=== PATIENT | female | born 1995 | race Asian ===

== ENCOUNTER 2022-03-07 01:28 | Inpatient (IN) ==
[2022-03-07] MEDS ORDERED: OXYTOCIN 30 UNITS/500 ML BAG IV PRN ×2 (01:42→01:44)
[2022-03-07 02:26] LABS: Hematocrit (blood only) 33.1 % (37-47); Hemoglobin 11.3 g/dL (12.0-16.0); Mean Corpuscular Hgb Conc 34.1 g/dL (32-36); Mean Corpuscular Volume 93.8 fL (80-100); Mean Platelet Volume 10.7 fL (7.4-10.4); Platelet Count 183 K/uL (130-400); Red Blood Count 3.53 M/uL (4.2-5.4); White Blood Count 7.79 K/uL (4.8-10.8)
--- NOTE | 2022-03-07 03:02 | History & Physical Report ---
Date of Service March 07, 2022 Assessment & Plan (1) Encounter for supervision of normal intrauterine in primigravida, antepartum: Plan: IUP at 40 4/7 weeks with SPROM and spontaneous onset of contractions GBS - negative patient will ambulate for now- pitocin if needed for augmentation of labor epidural when requested anticipate vaginal Admission and Anticipated Discharge Date Admission Date: March 07, 2022 History of Present Illness Chief Complaint: SPROM Primary Care Provider: NO PCP Patient is a 26 yo female, EDC 03/02/22 who presents at 40 3/7 weeks with SPROM of clear fluid at 0100 tonight. contractions started shortly afterward. is uncomplicated. GBS - negative Allergies Allergy/AdvReac Type Severity Reaction Status Date / Time No Known Allergies Allergy Verified 03/06/22 11:43 Home Medications Medication Instructions Recorded Confirmed Type prenat.vits,dori,[id number] PO 07/17/21 03/06/22 History ferrous sulfate PO 12/25/21 03/06/22 History Patient History Medical History (Updated 07/17/21 @ 13:47 by Chelly Soliz RN) No significant past medical history Varicella vaccination Surgical History (Updated 07/17/21 @ 13:47 by Chelly Soliz RN) No significant past surgical history Family History (Updated 07/17/21 @ 13:39 by Chelly Soliz RN) Denies family history of Prostate cancer Breast cancer Colorectal cancer Pulmonary embolism Social History (Updated 07/17/21 @ 13:41 by Chelly Soliz RN) Smoking Status: Never smoker Second Hand Exposure: No; Do You Dip or Chew Tobacco: No; Tobacco Cessation Education Requested by Patient: No Hx Alcohol Use: No Hx Substance Use: No Preferred Language: Wolof Communication Ability: Effective Visual Impairment: No Limitations Hearing Ability: Normal Detention Deputy Required: No Beliefs That Will Affect Care: None marital status: marital status details: Stewart Blackwell (29) [phone] Current Living Situation: Spouse Current Living Situation Comment: lives with . No pets current occupational status: employed current occupation: Grad student/research operator assistant [employer] Other Information That Helps Us Care for You: No Feels Safe at Home: No Is there a partner from a previous relationship who is making you feel unsafe now?: No Any Concerns about Your Family Situation: No Would You Like to Speak to Someone About Your Situation: No Safety Concerns: Feels Safe At This Time Assistive Devices: Glasses Review of Systems All systems reviewed & are unremarkable except as noted in HPI & below Physical Exam Constitutional: WD/WN, vitals as above Psychiatric: A+Ox3, euthymic affect Genitourinary: OB Exam Abdomen: + vertex, + estimated weight (7-8 pounds) and + regular contractions (mild to moderate) Manual OB Exam: + cervical dilation 1 cm, + cervical effacement 50% and + station -2 OB Exam Monitor Tracing: + external FHT monitor used, + external uterine monitor used, + category I and + normal FHT variability Results & Data ([facility]) Vital Signs (Past 12 Hours) Vital Signs Temp Pulse Resp BP 03/07/22 02:10 97.7 F 18 03/07/22 01:47 63 118/76 Coding Level of Care Code None Diagnoses Encounter for supervision of normal intrauterine in primigravida, antepartum Z34.00
[2022-03-07] MEDS: LACTATED RINGER'S 1,000 ML IV PRN ×3 (05:19→16:11)
[2022-03-07] MEDS ORDERED: ePHEDrine sulfate 50 MG/ML AMP ONE (07:18)
[2022-03-07] MEDS ORDERED: fentaNYL 2MCG/ML ROPIVACAINE 1.25MG/ML 100 ML BAG EPI ONE (07:19)
[2022-03-07] MEDS ORDERED: BUPIVACAINE 0.25% 30 ML VIAL ONE (07:19)
[2022-03-07] MEDS ORDERED: fentaNYL citrate 100 MCG/2 ML VIAL ONE (07:19)
[2022-03-07] MEDS ORDERED: SODIUM CHLORIDE 0.9% INJ 10 ML VIAL ONE (07:19)
--- NOTE | 2022-03-07 08:03 | Anesthesiology Consultation ---
Date of Service March 07, 2022 Assessment & Plan (1) Encounter for pre-operative examination: Chart Review Chart Review: Acceptable Risk for Labor Epidural Consults Requested none ASA ASA2 Proposed Anesthesia Anesthesia Type: Labor Epidural Risk / Benefits Reviewed With: PT / POA / Parent / Guardian, Accepts Plan and Informed Consent Obtained History Height/Weight Height: 5 ft 5 in Weight: 65.317 kg Allergies Allergy/AdvReac Type Severity Reaction Status Date / Time No Known Allergies Allergy Verified 03/06/22 11:43 Medications Home Medications Medication Instructions Recorded Confirmed Last Taken prenat.vits,dori,[id number] 1 tab PO DAILY 07/17/21 03/07/22 03/06/22 08:00 ferrous sulfate 1 tab PO DAILY 12/25/21 03/07/22 03/06/22 08:00 Active Medications Generic Name Dose Route Start Last Admin Trade Name Freq PRN Reason Stop Dose Admin Lactated Ringer's 1,000 mls @ 125 mls/hr 03/07/22 01:42 03/07/22 08:00 Lr IV 03/09/22 01:41 125 mls/hr .Q8H PRN Administration L&D Protocol Protocol Oxytocin 30 units in 500 mls @ 5 mls/hr 03/07/22 01:44 03/07/22 07:00 Pitocin IV 03/09/22 01:43 0.3 units/hr .Q24H PRN 5 mls/hr Labor Induction/Augmentation Titration Protocol 0.3 UNITS/HR Past Medical History Medical History No significant past medical history Varicella vaccination Exercise / Class Metabolic Activity II 4-5 Yardwork/Stairs/Walk up hill Past Family History Family History Denies family history of Prostate cancer Breast cancer Colorectal cancer Pulmonary embolism Past Surgical History Surgical History H/O wisdom tooth extraction No significant past surgical history Past Anesthesia History No Hx of Anesthesia Complications and No Family Hx of Anesthesia Complications History of PONV No Hx of PONV and No Hx of Motion Sickness Social History Smoking Status: Never smoker Do You Dip or Chew Tobacco: No Hx Alcohol Use: No Hx Substance Use: No substance use type: does not use Physical Exam Vital Signs Last Vital Signs Temp 98.8 F 03/07/22 07:00 Pulse 73 03/07/22 07:59 Resp 18 03/07/22 07:00 BP 107/63 03/07/22 07:57 Pulse Ox 97 03/07/22 07:59 ENMT Mouth: no dentition abnormality Thyromental Distance: > or= 3.5 Finger Breadths Mallampati Class: II Neck normal visual inspection Respiratory normal respiratory effort Auscultation: lungs clear to auscultation bilaterally Cardiovascular Rate/Rhythm: regular rate and regular rhythm Testing Laboratory Results 03/07/22 01:59
[2022-03-07] MEDS ORDERED: NALOXONE HCL 0.4 MG/1 ML VIAL/CARP IV PRN (08:24)
[2022-03-07] MEDS ORDERED: ePHEDrine sulfate 50 MG/ML AMP IV PRN (08:24)
[2022-03-07] MEDS ORDERED: diphenhydrAMINE 50 MG/ML VIAL IV PRN (08:24)
[2022-03-07] MEDS ORDERED: NALOXONE HCL 1 MG in SODIUM CHLORIDE 0.9% 1000ML 1,000 ML IV PRN (08:24)
[2022-03-07] MEDS ORDERED: NALBUPHINE HCL INJ 10 MG/ML AMP IV PRN (08:24)
[2022-03-07] MEDS ORDERED: ONDANSETRON INJ 2 MG/ML 2 ML VIAL IV PRN (08:49)
--- NOTE | 2022-03-07 11:57 | Labor Progress Brief Note ---
Date of Service March 07, 2022 Subjective comfortable with epidural Assessment & Plan (1) PROM (premature rupture of membranes): Plan: making progress, fetus category one, continue current management. Admission and Anticipated Discharge Date Admission Date: March 07, 2022 Physical Exam Physical Exam: cx--/-2 toco--q2-4min, pit at 13 efm--130s with mod variability, accels to 160s, no decels Results & Data ([facility]) Vital Signs (Past 12 Hours) Vital Signs Temp Pulse Resp BP Pulse Ox 03/07/22 11:49 68 96 03/07/22 11:48 67 103/63 03/07/22 11:44 68 97 03/07/22 11:39 64 97 03/07/22 11:34 73 16 97 03/07/22 11:32 64 110/61 94 03/07/22 11:29 68 95 03/07/22 11:26 68 94 03/07/22 11:24 66 95 03/07/22 11:19 67 95 03/07/22 11:18 63 101/60 03/07/22 11:14 65 94 03/07/22 11:09 72 95 03/07/22 11:08 68 94 03/07/22 11:04 66 96 03/07/22 11:02 63 101/58 L 03/07/22 11:00 16 03/07/22 10:59 71 96 03/07/22 10:54 68 97 03/07/22 10:49 64 97 03/07/22 10:47 64 103/61 03/07/22 10:44 66 96 03/07/22 10:39 68 97 03/07/22 10:34 67 97 03/07/22 10:32 65 102/62 03/07/22 10:30 16 03/07/22 10:29 70 97 03/07/22 10:28 18 03/07/22 10:24 59 L 97 03/07/22 10:19 64 97 03/07/22 10:18 57 L 98/58 L 03/07/22 10:14 67 97 03/07/22 10:09 64 97 03/07/22 10:04 66 96 03/07/22 10:02 60 104/61 03/07/22 10:00 18 03/07/22 09:59 62 96 03/07/22 09:54 58 L 96 03/07/22 09:49 58 L 96 03/07/22 09:47 58 L 101/57 L 03/07/22 09:44 63 96 03/07/22 09:39 64 95 03/07/22 09:34 64 96 03/07/22 09:33 36.9 C 16 03/07/22 09:32 61 101/56 L 03/07/22 09:30 18 03/07/22 09:29 65 96 03/07/22 09:24 61 96 03/07/22 09:19 57 L 96 03/07/22 09:17 67 103/60 03/07/22 09:14 58 L 96 03/07/22 09:09 57 L 95 03/07/22 09:08 58 L 94 03/07/22 09:04 58 L 95 03/07/22 09:03 56 L 98/57 L 03/07/22 08:59 56 L 95 03/07/22 08:54 60 97 03/07/22 08:49 62 96 03/07/22 08:47 62 16 108/60 03/07/22 08:44 66 96 03/07/22 08:39 64 97 03/07/22 08:34 62 98 03/07/22 08:32 65 16 108/61 03/07/22 08:29 66 104/56 L 97 03/07/22 08:26 62 105/59 L 03/07/22 08:24 67 98 03/07/22 08:23 64 106/62 03/07/22 08:20 67 114/75 03/07/22 08:19 67 96 03/07/22 08:17 64 109/68 03/07/22 08:16 71 108/69 03/07/22 08:14 74 109/71 96 03/07/22 08:09 73 96 03/07/22 08:06 18 03/07/22 08:04 61 95 03/07/22 07:59 73 97 03/07/22 07:57 70 107/63 03/07/22 07:54 71 97 03/07/22 07:49 75 98 03/07/22 07:24 68 109/67 03/07/22 07:00 37.1 C 18 03/07/22 06:55 71 100/59 L 03/07/22 06:25 71 103/61 03/07/22 05:54 64 107/66 03/07/22 05:16 62 101/65 03/07/22 04:10 36.5 C 18 03/07/22 02:10 36.5 C 18 03/07/22 02:00 36.5 C 18 03/07/22 01:47 63 118/76 Coding Level of Care Code None Diagnoses PROM (premature rupture of membranes) O42.90
--- NOTE | 2022-03-07 16:07 | Labor Progress Brief Note ---
Date of Service March 07, 2022 Subjective comfortable Assessment & Plan (1) PROM (premature rupture of membranes): Plan: making good progress, fetus overall category one, rare variable. anticipate . Admission and Anticipated Discharge Date Admission Date: March 07, 2022 Physical Exam Physical Exam: cx--/-1, arom small forebag toco--q2-4min, pit at 17 efm--140s with mod variability, accels present, rare variable Results & Data ([facility]) Vital Signs (Past 12 Hours) Vital Signs Temp Pulse Resp BP Pulse Ox 03/07/22 16:04 56 L 96 03/07/22 16:03 58 L 108/71 03/07/22 15:59 57 L 96 03/07/22 15:54 60 94 03/07/22 15:49 62 93 03/07/22 15:47 61 94/54 L 03/07/22 15:44 60 94 03/07/22 15:42 61 94 03/07/22 15:39 60 93 03/07/22 15:34 60 93 03/07/22 15:32 59 L 92/50 L 03/07/22 15:29 67 93 03/07/22 15:24 65 94 03/07/22 15:19 66 94 03/07/22 15:18 61 91/50 L 03/07/22 15:14 65 94 03/07/22 15:09 61 93 03/07/22 15:04 62 94 03/07/22 15:02 62 94/54 L 03/07/22 15:00 16 03/07/22 14:59 62 93 03/07/22 14:54 64 94 03/07/22 14:49 59 L 95 03/07/22 14:48 55 L 104/63 94 03/07/22 14:46 37.3 C 18 03/07/22 14:44 69 96 03/07/22 14:43 65 94 03/07/22 14:39 64 96 03/07/22 14:34 67 95 03/07/22 14:32 63 101/63 03/07/22 14:30 18 03/07/22 14:29 65 96 03/07/22 14:24 65 95 03/07/22 14:19 64 96 03/07/22 14:17 60 98/61 L 03/07/22 14:14 66 95 03/07/22 14:10 64 94 03/07/22 14:09 64 94 03/07/22 14:04 67 94 03/07/22 14:03 65 94 03/07/22 14:02 62 99/58 L 03/07/22 14:00 18 03/07/22 13:59 62 95 03/07/22 13:56 66 94 03/07/22 13:54 63 95 03/07/22 13:49 65 95 03/07/22 13:48 61 94 03/07/22 13:47 64 100/58 L 03/07/22 13:44 63 94 03/07/22 13:42 68 94 03/07/22 13:39 71 95 03/07/22 13:34 67 96 03/07/22 13:32 71 105/64 03/07/22 13:30 16 03/07/22 13:29 66 96 03/07/22 13:24 65 96 03/07/22 13:19 68 100/63 96 03/07/22 13:14 68 96 03/07/22 13:11 62 94 03/07/22 13:09 71 94 03/07/22 13:05 64 94 03/07/22 13:04 69 94 03/07/22 13:02 65 105/64 03/07/22 13:00 16 03/07/22 12:59 70 95 03/07/22 12:54 67 94 03/07/22 12:50 71 94 03/07/22 12:49 71 95 03/07/22 12:47 65 104/62 03/07/22 12:44 66 94 03/07/22 12:39 66 94 03/07/22 12:37 65 94 03/07/22 12:34 65 94 03/07/22 12:33 64 100/59 L 03/07/22 12:30 65 94 03/07/22 12:29 62 94 03/07/22 12:25 65 94 03/07/22 12:24 60 95 03/07/22 12:19 71 94 03/07/22 12:17 63 103/62 03/07/22 12:14 66 95 03/07/22 12:13 65 94 03/07/22 12:09 68 94 03/07/22 12:04 65 94 03/07/22 12:03 67 102/62 03/07/22 12:00 16 03/07/22 11:59 68 95 03/07/22 11:54 67 97 03/07/22 11:49 68 96 03/07/22 11:48 67 103/63 03/07/22 11:44 68 97 03/07/22 11:39 64 97 03/07/22 11:34 73 16 97 03/07/22 11:32 64 110/61 94 03/07/22 11:30 16 03/07/22 11:29 68 95 03/07/22 11:26 68 94 03/07/22 11:24 66 95 03/07/22 11:19 67 95 03/07/22 11:18 63 101/60 03/07/22 11:14 65 94 03/07/22 11:09 72 95 03/07/22 11:08 68 94 03/07/22 11:04 66 96 03/07/22 11:02 63 101/58 L 03/07/22 11:00 16 03/07/22 10:59 71 96 03/07/22 10:54 68 97 03/07/22 10:49 64 97 03/07/22 10:47 64 103/61 03/07/22 10:44 66 96 03/07/22 10:39 68 97 03/07/22 10:34 67 97 03/07/22 10:32 65 102/62 03/07/22 10:30 16 03/07/22 10:29 70 97 03/07/22 10:28 18 03/07/22 10:24 59 L 97 03/07/22 10:19 64 97 03/07/22 10:18 57 L 98/58 L 03/07/22 10:14 67 97 03/07/22 10:09 64 97 03/07/22 10:04 66 96 03/07/22 10:02 60 104/61 03/07/22 10:00 18 03/07/22 09:59 62 96 03/07/22 09:54 58 L 96 03/07/22 09:49 58 L 96 03/07/22 09:47 58 L 101/57 L 03/07/22 09:44 63 96 03/07/22 09:39 64 95 03/07/22 09:34 64 96 03/07/22 09:33 36.9 C 16 03/07/22 09:32 61 101/56 L 03/07/22 09:30 18 03/07/22 09:29 65 96 03/07/22 09:24 61 96 03/07/22 09:19 57 L 96 03/07/22 09:17 67 103/60 03/07/22 09:14 58 L 96 03/07/22 09:09 57 L 95 03/07/22 09:08 58 L 94 03/07/22 09:04 58 L 95 03/07/22 09:03 56 L 98/57 L 03/07/22 08:59 56 L 95 03/07/22 08:54 60 97 03/07/22 08:49 62 96 03/07/22 08:47 62 16 108/60 03/07/22 08:44 66 96 03/07/22 08:39 64 97 03/07/22 08:34 62 98 03/07/22 08:32 65 16 108/61 03/07/22 08:29 66 104/56 L 97 03/07/22 08:26 62 105/59 L 03/07/22 08:24 67 98 03/07/22 08:23 64 106/62 03/07/22 08:20 67 114/75 03/07/22 08:19 67 96 03/07/22 08:17 64 109/68 03/07/22 08:16 71 108/69 03/07/22 08:14 74 109/71 96 03/07/22 08:09 73 96 03/07/22 08:06 18 03/07/22 08:04 61 95 03/07/22 07:59 73 97 03/07/22 07:57 70 107/63 03/07/22 07:54 71 97 03/07/22 07:49 75 98 03/07/22 07:24 68 109/67 03/07/22 07:00 37.1 C 18 03/07/22 06:55 71 100/59 L 03/07/22 06:25 71 103/61 03/07/22 05:54 64 107/66 03/07/22 05:16 62 101/65 03/07/22 04:10 36.5 C 18 Coding Level of Care Code None Diagnoses PROM (premature rupture of membranes) O42.90
[2022-03-07] MEDS: fentaNYL 2MCG/ML ROPIVACAINE 1.25MG/ML 100 ML BAG EPI PRN ×2 (16:18→22:09)
--- NOTE | 2022-03-07 18:39 | Labor Progress Brief Note ---
Date of Service March 07, 2022 Subjective comfortable, noting some rectal pressure Assessment & Plan (1) PROM (premature rupture of membranes): Plan: continue current plan. is making change and iupc demonstrates adequate contractions. fetus category one. Admission and Anticipated Discharge Date Admission Date: March 07, 2022 Physical Exam Physical Exam: cx--7-8/-1, swollen anterior lip toco--q2-3min, pit at 17, iupc placed given swelling of cervix, also noting molding of head pattern appears to be adequate efm--130s wthi mod variability, accels present, early decels with some contractions Results & Data ([facility]) Vital Signs (Past 12 Hours) Vital Signs Temp Pulse Resp BP Pulse Ox 03/07/22 18:34 67 108/55 L 96 03/07/22 18:29 66 97 03/07/22 18:25 69 94 03/07/22 18:24 66 95 03/07/22 18:19 69 95 03/07/22 18:18 66 109/68 03/07/22 18:14 69 94 03/07/22 18:11 64 94 03/07/22 18:09 69 96 03/07/22 18:05 76 94 03/07/22 18:04 63 95 03/07/22 18:02 61 115/73 03/07/22 18:00 37 C 18 03/07/22 17:59 58 L 114/73 95 03/07/22 17:54 70 95 03/07/22 17:53 68 94 03/07/22 17:49 65 96 03/07/22 17:44 59 L 96 03/07/22 17:39 61 96 03/07/22 17:34 63 96 03/07/22 17:30 16 03/07/22 17:29 63 96 03/07/22 17:24 65 94 03/07/22 17:22 69 94 03/07/22 17:19 64 95 03/07/22 17:17 56 L 94 03/07/22 17:14 65 94 03/07/22 17:10 58 L 94 03/07/22 17:09 61 94 03/07/22 17:04 66 94 03/07/22 16:59 69 96 03/07/22 16:58 65 94 03/07/22 16:54 66 94 03/07/22 16:53 63 94 03/07/22 16:49 57 L 95 03/07/22 16:44 59 L 94 03/07/22 16:43 66 94 03/07/22 16:39 58 L 95 03/07/22 16:38 61 94 03/07/22 16:34 64 95 03/07/22 16:29 59 L 96 03/07/22 16:24 61 96 03/07/22 16:19 58 L 97 03/07/22 16:17 59 L 109/70 03/07/22 16:14 58 L 96 03/07/22 16:09 58 L 97 03/07/22 16:04 56 L 96 03/07/22 16:03 37 C 58 L 16 108/71 03/07/22 16:00 18 03/07/22 15:59 57 L 96 03/07/22 15:54 60 94 03/07/22 15:49 62 93 03/07/22 15:47 61 94/54 L 03/07/22 15:44 60 94 03/07/22 15:42 61 94 03/07/22 15:39 60 93 03/07/22 15:34 60 93 03/07/22 15:32 59 L 92/50 L 03/07/22 15:29 67 93 03/07/22 15:24 65 94 03/07/22 15:19 66 94 03/07/22 15:18 61 91/50 L 03/07/22 15:14 65 94 03/07/22 15:09 61 93 03/07/22 15:04 62 94 03/07/22 15:02 62 94/54 L 03/07/22 15:00 16 03/07/22 14:59 62 93 03/07/22 14:54 64 94 03/07/22 14:49 59 L 95 03/07/22 14:48 55 L 104/63 94 03/07/22 14:46 37.3 C 18 03/07/22 14:44 69 96 03/07/22 14:43 65 94 03/07/22 14:39 64 96 03/07/22 14:34 67 95 03/07/22 14:32 63 101/63 03/07/22 14:30 18 03/07/22 14:29 65 96 03/07/22 14:24 65 95 03/07/22 14:19 64 96 03/07/22 14:17 60 98/61 L 03/07/22 14:14 66 95 03/07/22 14:10 64 94 03/07/22 14:09 64 94 03/07/22 14:04 67 94 03/07/22 14:03 65 94 03/07/22 14:02 62 99/58 L 03/07/22 14:00 18 03/07/22 13:59 62 95 03/07/22 13:56 66 94 03/07/22 13:54 63 95 03/07/22 13:49 65 95 03/07/22 13:48 61 94 03/07/22 13:47 64 100/58 L 03/07/22 13:44 63 94 03/07/22 13:42 68 94 03/07/22 13:39 71 95 03/07/22 13:34 67 96 03/07/22 13:32 71 105/64 03/07/22 13:30 37.1 C 16 03/07/22 13:29 66 96 03/07/22 13:24 65 96 03/07/22 13:19 68 100/63 96 03/07/22 13:14 68 96 03/07/22 13:11 62 94 03/07/22 13:09 71 94 03/07/22 13:05 64 94 03/07/22 13:04 69 94 03/07/22 13:02 65 105/64 03/07/22 13:00 16 03/07/22 12:59 70 95 03/07/22 12:54 67 94 03/07/22 12:50 71 94 03/07/22 12:49 71 95 03/07/22 12:47 65 104/62 03/07/22 12:44 66 94 03/07/22 12:39 66 94 03/07/22 12:37 65 94 03/07/22 12:34 65 94 03/07/22 12:33 64 100/59 L 03/07/22 12:30 65 94 03/07/22 12:29 62 94 03/07/22 12:25 65 94 03/07/22 12:24 60 95 03/07/22 12:19 71 94 03/07/22 12:17 63 103/62 03/07/22 12:14 66 95 03/07/22 12:13 65 94 03/07/22 12:09 68 94 03/07/22 12:04 65 94 03/07/22 12:03 67 102/62 03/07/22 12:00 16 03/07/22 11:59 68 95 03/07/22 11:54 67 97 03/07/22 11:49 68 96 03/07/22 11:48 67 103/63 03/07/22 11:44 68 97 03/07/22 11:39 64 97 03/07/22 11:34 73 16 97 03/07/22 11:32 64 110/61 94 03/07/22 11:30 37 C 16 03/07/22 11:29 68 95 03/07/22 11:26 68 94 03/07/22 11:24 66 95 03/07/22 11:19 67 95 03/07/22 11:18 63 101/60 03/07/22 11:14 65 94 03/07/22 11:09 72 95 03/07/22 11:08 68 94 03/07/22 11:04 66 96 03/07/22 11:02 63 101/58 L 03/07/22 11:00 16 03/07/22 10:59 71 96 03/07/22 10:54 68 97 03/07/22 10:49 64 97 03/07/22 10:47 64 103/61 03/07/22 10:44 66 96 03/07/22 10:39 68 97 03/07/22 10:34 67 97 03/07/22 10:32 65 102/62 03/07/22 10:30 16 03/07/22 10:29 70 97 03/07/22 10:28 18 03/07/22 10:24 59 L 97 03/07/22 10:19 64 97 03/07/22 10:18 57 L 98/58 L 03/07/22 10:14 67 97 03/07/22 10:09 64 97 03/07/22 10:04 66 96 03/07/22 10:02 60 104/61 03/07/22 10:00 18 03/07/22 09:59 62 96 03/07/22 09:54 58 L 96 03/07/22 09:49 58 L 96 03/07/22 09:47 58 L 101/57 L 03/07/22 09:44 63 96 03/07/22 09:39 64 95 03/07/22 09:34 64 96 03/07/22 09:33 36.9 C 16 03/07/22 09:32 61 101/56 L 03/07/22 09:30 18 03/07/22 09:29 65 96 03/07/22 09:24 61 96 03/07/22 09:19 57 L 96 03/07/22 09:17 67 103/60 03/07/22 09:14 58 L 96 03/07/22 09:09 57 L 95 03/07/22 09:08 58 L 94 03/07/22 09:04 58 L 95 03/07/22 09:03 56 L 98/57 L 03/07/22 08:59 56 L 95 03/07/22 08:54 60 97 03/07/22 08:49 62 96 03/07/22 08:47 62 16 108/60 03/07/22 08:44 66 96 03/07/22 08:40 37 C 16 03/07/22 08:39 64 97 03/07/22 08:34 62 98 03/07/22 08:32 65 16 108/61 03/07/22 08:29 66 104/56 L 97 03/07/22 08:26 62 105/59 L 03/07/22 08:24 67 98 03/07/22 08:23 64 106/62 03/07/22 08:20 67 114/75 03/07/22 08:19 67 96 03/07/22 08:17 64 109/68 03/07/22 08:16 71 108/69 03/07/22 08:14 74 109/71 96 03/07/22 08:09 73 96 03/07/22 08:06 18 03/07/22 08:04 61 95 03/07/22 07:59 73 97 03/07/22 07:57 70 107/63 03/07/22 07:54 71 97 03/07/22 07:49 75 98 03/07/22 07:24 68 109/67 03/07/22 07:00 37.1 C 18 03/07/22 06:55 71 100/59 L Coding Level of Care Code None Diagnoses PROM (premature rupture of membranes) O42.90
--- NOTE | 2022-03-07 20:57 | Labor Progress Brief Note ---
Date of Service March 07, 2022 Subjective comfortable Assessment & Plan (1) PROM (premature rupture of membranes): Plan: continue current management. fetus category one. anticipate . Admission and Anticipated Discharge Date Admission Date: March 07, 2022 Physical Exam Physical Exam: cx--ant lip/100/+1 toco--q2-3, pit at 17, ctx adequate efm--130s with mod variability, accels to 160s Results & Data ([facility]) Vital Signs (Past 12 Hours) Vital Signs Temp Pulse Resp BP Pulse Ox 03/07/22 20:54 73 97 03/07/22 20:49 61 96 03/07/22 20:48 64 114/72 03/07/22 20:44 62 96 03/07/22 20:39 76 96 03/07/22 20:34 66 96 03/07/22 20:33 64 118/71 03/07/22 20:29 58 L 96 03/07/22 20:24 63 97 03/07/22 20:19 64 97 03/07/22 20:17 64 120/75 03/07/22 20:14 66 96 03/07/22 20:09 60 97 03/07/22 20:04 68 96 03/07/22 20:03 64 116/73 03/07/22 19:59 64 97 03/07/22 19:54 63 97 03/07/22 19:49 65 96 03/07/22 19:48 63 116/74 03/07/22 19:44 65 97 03/07/22 19:39 64 96 03/07/22 19:34 64 97 03/07/22 19:32 59 L 107/72 03/07/22 19:29 59 L 97 03/07/22 19:24 66 97 03/07/22 19:19 64 98 03/07/22 19:17 65 112/71 03/07/22 19:14 60 97 03/07/22 19:13 36.7 C 16 03/07/22 19:09 63 97 03/07/22 19:04 69 98 03/07/22 19:02 64 103/57 L 03/07/22 19:00 18 03/07/22 18:59 67 97 03/07/22 18:54 62 97 03/07/22 18:49 61 97 03/07/22 18:47 61 99/54 L 03/07/22 18:44 61 98 03/07/22 18:39 60 97 03/07/22 18:34 67 108/55 L 96 03/07/22 18:30 16 03/07/22 18:29 66 97 03/07/22 18:25 69 94 03/07/22 18:24 66 95 03/07/22 18:19 69 95 03/07/22 18:18 66 109/68 03/07/22 18:14 69 94 03/07/22 18:11 64 94 03/07/22 18:09 69 96 03/07/22 18:05 76 94 03/07/22 18:04 63 95 03/07/22 18:02 61 115/73 03/07/22 18:00 37 C 18 03/07/22 17:59 58 L 114/73 95 03/07/22 17:54 70 95 03/07/22 17:53 68 94 03/07/22 17:49 65 96 03/07/22 17:44 59 L 96 03/07/22 17:39 61 96 03/07/22 17:34 63 96 03/07/22 17:30 16 03/07/22 17:29 63 96 03/07/22 17:24 65 94 03/07/22 17:22 69 94 03/07/22 17:19 64 95 03/07/22 17:17 56 L 94 03/07/22 17:14 65 94 03/07/22 17:10 58 L 94 03/07/22 17:09 61 94 03/07/22 17:04 66 94 03/07/22 16:59 69 96 03/07/22 16:58 65 94 03/07/22 16:54 66 94 03/07/22 16:53 63 94 03/07/22 16:49 57 L 95 03/07/22 16:44 59 L 94 03/07/22 16:43 66 94 03/07/22 16:39 58 L 95 03/07/22 16:38 61 94 03/07/22 16:34 64 95 03/07/22 16:29 59 L 96 03/07/22 16:24 61 96 03/07/22 16:19 58 L 97 03/07/22 16:17 59 L 109/70 03/07/22 16:14 58 L 96 03/07/22 16:09 58 L 97 03/07/22 16:04 56 L 96 03/07/22 16:03 37 C 58 L 16 108/71 03/07/22 16:00 18 03/07/22 15:59 57 L 96 03/07/22 15:54 60 94 03/07/22 15:49 62 93 03/07/22 15:47 61 94/54 L 03/07/22 15:44 60 94 03/07/22 15:42 61 94 03/07/22 15:39 60 93 03/07/22 15:34 60 93 03/07/22 15:32 59 L 92/50 L 03/07/22 15:29 67 93 03/07/22 15:24 65 94 03/07/22 15:19 66 94 03/07/22 15:18 61 91/50 L 03/07/22 15:14 65 94 03/07/22 15:09 61 93 03/07/22 15:04 62 94 03/07/22 15:02 62 94/54 L 03/07/22 15:00 16 03/07/22 14:59 62 93 03/07/22 14:54 64 94 03/07/22 14:49 59 L 95 03/07/22 14:48 55 L 104/63 94 03/07/22 14:46 37.3 C 18 03/07/22 14:44 69 96 03/07/22 14:43 65 94 03/07/22 14:39 64 96 03/07/22 14:34 67 95 03/07/22 14:32 63 101/63 03/07/22 14:30 18 03/07/22 14:29 65 96 03/07/22 14:24 65 95 03/07/22 14:19 64 96 03/07/22 14:17 60 98/61 L 03/07/22 14:14 66 95 03/07/22 14:10 64 94 03/07/22 14:09 64 94 03/07/22 14:04 67 94 03/07/22 14:03 65 94 03/07/22 14:02 62 99/58 L 03/07/22 14:00 18 03/07/22 13:59 62 95 03/07/22 13:56 66 94 03/07/22 13:54 63 95 03/07/22 13:49 65 95 03/07/22 13:48 61 94 03/07/22 13:47 64 100/58 L 03/07/22 13:44 63 94 03/07/22 13:42 68 94 03/07/22 13:39 71 95 03/07/22 13:34 67 96 03/07/22 13:32 71 105/64 03/07/22 13:30 37.1 C 16 03/07/22 13:29 66 96 03/07/22 13:24 65 96 03/07/22 13:19 68 100/63 96 03/07/22 13:14 68 96 03/07/22 13:11 62 94 03/07/22 13:09 71 94 03/07/22 13:05 64 94 03/07/22 13:04 69 94 03/07/22 13:02 65 105/64 03/07/22 13:00 16 03/07/22 12:59 70 95 03/07/22 12:54 67 94 03/07/22 12:50 71 94 03/07/22 12:49 71 95 03/07/22 12:47 65 104/62 03/07/22 12:44 66 94 03/07/22 12:39 66 94 03/07/22 12:37 65 94 03/07/22 12:34 65 94 03/07/22 12:33 64 100/59 L 03/07/22 12:30 65 94 03/07/22 12:29 62 94 03/07/22 12:25 65 94 03/07/22 12:24 60 95 03/07/22 12:19 71 94 03/07/22 12:17 63 103/62 03/07/22 12:14 66 95 03/07/22 12:13 65 94 03/07/22 12:09 68 94 03/07/22 12:04 65 94 03/07/22 12:03 67 102/62 03/07/22 12:00 16 03/07/22 11:59 68 95 03/07/22 11:54 67 97 03/07/22 11:49 68 96 03/07/22 11:48 67 103/63 03/07/22 11:44 68 97 03/07/22 11:39 64 97 03/07/22 11:34 73 16 97 03/07/22 11:32 64 110/61 94 03/07/22 11:30 37 C 16 03/07/22 11:29 68 95 03/07/22 11:26 68 94 03/07/22 11:24 66 95 03/07/22 11:19 67 95 03/07/22 11:18 63 101/60 03/07/22 11:14 65 94 03/07/22 11:09 72 95 03/07/22 11:08 68 94 03/07/22 11:04 66 96 03/07/22 11:02 63 101/58 L 03/07/22 11:00 16 03/07/22 10:59 71 96 03/07/22 10:54 68 97 03/07/22 10:49 64 97 03/07/22 10:47 64 103/61 03/07/22 10:44 66 96 03/07/22 10:39 68 97 03/07/22 10:34 67 97 03/07/22 10:32 65 102/62 03/07/22 10:30 16 03/07/22 10:29 70 97 03/07/22 10:28 18 03/07/22 10:24 59 L 97 03/07/22 10:19 64 97 03/07/22 10:18 57 L 98/58 L 03/07/22 10:14 67 97 03/07/22 10:09 64 97 03/07/22 10:04 66 96 03/07/22 10:02 60 104/61 03/07/22 10:00 18 03/07/22 09:59 62 96 03/07/22 09:54 58 L 96 03/07/22 09:49 58 L 96 03/07/22 09:47 58 L 101/57 L 03/07/22 09:44 63 96 03/07/22 09:39 64 95 03/07/22 09:34 64 96 03/07/22 09:33 36.9 C 16 03/07/22 09:32 61 101/56 L 03/07/22 09:30 18 03/07/22 09:29 65 96 03/07/22 09:24 61 96 03/07/22 09:19 57 L 96 03/07/22 09:17 67 103/60 03/07/22 09:14 58 L 96 03/07/22 09:09 57 L 95 03/07/22 09:08 58 L 94 03/07/22 09:04 58 L 95 03/07/22 09:03 56 L 98/57 L 03/07/22 08:59 56 L 95 Coding Level of Care Code None Diagnoses PROM (premature rupture of membranes) O42.90
--- NOTE | 2022-03-07 23:21 | Labor Progress Brief Note ---
Date of Service March 07, 2022 Subjective Pushing with good effort for about one hour Assessment & Plan (1) PROM (premature rupture of membranes): Plan: one hour into stage two slow but positive progress, fetus reassuring. anticipate . Admission and Anticipated Discharge Date Admission Date: March 07, 2022 Physical Exam Physical Exam: cx--c/c/+2-3 with caput toco--q 2min efm--140s with mod variablity, variables with pushing. Results & Data ([facility]) Vital Signs (Past 12 Hours) Vital Signs Temp Pulse Resp BP Pulse Ox 03/07/22 23:18 65 105/65 03/07/22 23:14 62 98 03/07/22 23:09 70 96 03/07/22 23:04 71 97 03/07/22 23:00 37.2 C 18 03/07/22 22:59 78 97 03/07/22 22:54 65 98 03/07/22 22:49 70 98 03/07/22 22:44 66 97 03/07/22 22:39 63 97 03/07/22 22:34 76 97 03/07/22 22:33 71 98/59 L 03/07/22 22:29 69 97 03/07/22 22:24 80 98 03/07/22 22:19 72 97 03/07/22 22:17 62 121/74 03/07/22 22:14 62 97 03/07/22 22:09 57 L 97 03/07/22 22:04 61 98 03/07/22 22:02 62 119/76 03/07/22 21:59 63 97 03/07/22 21:54 62 97 03/07/22 21:49 64 97 03/07/22 21:47 55 L 112/69 03/07/22 21:44 64 97 03/07/22 21:39 64 97 03/07/22 21:34 69 95 03/07/22 21:33 64 123/74 03/07/22 21:29 64 97 03/07/22 21:24 60 96 03/07/22 21:19 56 L 96 03/07/22 21:17 62 119/70 03/07/22 21:14 65 96 03/07/22 21:09 66 96 03/07/22 21:07 66 94 03/07/22 21:04 62 114/71 96 03/07/22 20:59 64 96 03/07/22 20:55 37.0 C 16 03/07/22 20:54 73 97 03/07/22 20:49 61 96 03/07/22 20:48 64 114/72 03/07/22 20:44 62 96 03/07/22 20:39 76 96 03/07/22 20:34 66 96 03/07/22 20:33 64 118/71 03/07/22 20:29 58 L 96 03/07/22 20:24 63 97 03/07/22 20:19 64 97 03/07/22 20:17 64 120/75 03/07/22 20:14 66 96 03/07/22 20:09 60 97 03/07/22 20:04 68 96 03/07/22 20:03 64 116/73 03/07/22 19:59 64 97 03/07/22 19:54 63 97 03/07/22 19:49 65 96 03/07/22 19:48 63 116/74 03/07/22 19:44 65 97 03/07/22 19:39 64 96 03/07/22 19:34 64 97 03/07/22 19:32 59 L 107/72 03/07/22 19:29 59 L 97 03/07/22 19:24 66 97 03/07/22 19:19 64 98 03/07/22 19:17 65 112/71 03/07/22 19:14 60 97 03/07/22 19:13 36.7 C 16 03/07/22 19:09 63 97 03/07/22 19:04 69 98 03/07/22 19:02 64 103/57 L 03/07/22 19:00 18 03/07/22 18:59 67 97 03/07/22 18:54 62 97 03/07/22 18:49 61 97 03/07/22 18:47 61 99/54 L 03/07/22 18:44 61 98 03/07/22 18:39 60 97 03/07/22 18:34 67 108/55 L 96 03/07/22 18:30 16 03/07/22 18:29 66 97 03/07/22 18:25 69 94 03/07/22 18:24 66 95 03/07/22 18:19 69 95 03/07/22 18:18 66 109/68 03/07/22 18:14 69 94 03/07/22 18:11 64 94 03/07/22 18:09 69 96 03/07/22 18:05 76 94 03/07/22 18:04 63 95 03/07/22 18:02 61 115/73 03/07/22 18:00 37 C 18 03/07/22 17:59 58 L 114/73 95 03/07/22 17:54 70 95 03/07/22 17:53 68 94 03/07/22 17:49 65 96 03/07/22 17:44 59 L 96 03/07/22 17:39 61 96 03/07/22 17:34 63 96 03/07/22 17:30 16 03/07/22 17:29 63 96 03/07/22 17:24 65 94 03/07/22 17:22 69 94 03/07/22 17:19 64 95 03/07/22 17:17 56 L 94 03/07/22 17:14 65 94 03/07/22 17:10 58 L 94 03/07/22 17:09 61 94 03/07/22 17:04 66 94 03/07/22 16:59 69 96 03/07/22 16:58 65 94 03/07/22 16:54 66 94 03/07/22 16:53 63 94 03/07/22 16:49 57 L 95 03/07/22 16:44 59 L 94 03/07/22 16:43 66 94 03/07/22 16:39 58 L 95 03/07/22 16:38 61 94 03/07/22 16:34 64 95 03/07/22 16:29 59 L 96 03/07/22 16:24 61 96 03/07/22 16:19 58 L 97 03/07/22 16:17 59 L 109/70 03/07/22 16:14 58 L 96 03/07/22 16:09 58 L 97 03/07/22 16:04 56 L 96 03/07/22 16:03 37 C 58 L 16 108/71 03/07/22 16:00 18 03/07/22 15:59 57 L 96 03/07/22 15:54 60 94 03/07/22 15:49 62 93 03/07/22 15:47 61 94/54 L 03/07/22 15:44 60 94 03/07/22 15:42 61 94 03/07/22 15:39 60 93 03/07/22 15:34 60 93 03/07/22 15:32 59 L 92/50 L 03/07/22 15:29 67 93 03/07/22 15:24 65 94 03/07/22 15:19 66 94 03/07/22 15:18 61 91/50 L 03/07/22 15:14 65 94 03/07/22 15:09 61 93 03/07/22 15:04 62 94 03/07/22 15:02 62 94/54 L 03/07/22 15:00 16 03/07/22 14:59 62 93 03/07/22 14:54 64 94 03/07/22 14:49 59 L 95 03/07/22 14:48 55 L 104/63 94 03/07/22 14:46 37.3 C 18 03/07/22 14:44 69 96 03/07/22 14:43 65 94 03/07/22 14:39 64 96 03/07/22 14:34 67 95 03/07/22 14:32 63 101/63 03/07/22 14:30 18 03/07/22 14:29 65 96 03/07/22 14:24 65 95 03/07/22 14:19 64 96 03/07/22 14:17 60 98/61 L 03/07/22 14:14 66 95 03/07/22 14:10 64 94 03/07/22 14:09 64 94 03/07/22 14:04 67 94 03/07/22 14:03 65 94 03/07/22 14:02 62 99/58 L 03/07/22 14:00 18 03/07/22 13:59 62 95 03/07/22 13:56 66 94 03/07/22 13:54 63 95 03/07/22 13:49 65 95 03/07/22 13:48 61 94 03/07/22 13:47 64 100/58 L 03/07/22 13:44 63 94 03/07/22 13:42 68 94 03/07/22 13:39 71 95 03/07/22 13:34 67 96 03/07/22 13:32 71 105/64 03/07/22 13:30 37.1 C 16 03/07/22 13:29 66 96 03/07/22 13:24 65 96 03/07/22 13:19 68 100/63 96 03/07/22 13:14 68 96 03/07/22 13:11 62 94 03/07/22 13:09 71 94 03/07/22 13:05 64 94 03/07/22 13:04 69 94 03/07/22 13:02 65 105/64 03/07/22 13:00 16 03/07/22 12:59 70 95 03/07/22 12:54 67 94 03/07/22 12:50 71 94 03/07/22 12:49 71 95 03/07/22 12:47 65 104/62 03/07/22 12:44 66 94 03/07/22 12:39 66 94 03/07/22 12:37 65 94 03/07/22 12:34 65 94 03/07/22 12:33 64 100/59 L 03/07/22 12:30 65 94 03/07/22 12:29 62 94 03/07/22 12:25 65 94 03/07/22 12:24 60 95 03/07/22 12:19 71 94 03/07/22 12:17 63 103/62 03/07/22 12:14 66 95 03/07/22 12:13 65 94 03/07/22 12:09 68 94 03/07/22 12:04 65 94 03/07/22 12:03 67 102/62 03/07/22 12:00 16 03/07/22 11:59 68 95 03/07/22 11:54 67 97 03/07/22 11:49 68 96 03/07/22 11:48 67 103/63 03/07/22 11:44 68 97 03/07/22 11:39 64 97 03/07/22 11:34 73 16 97 03/07/22 11:32 64 110/61 94 03/07/22 11:30 37 C 16 03/07/22 11:29 68 95 03/07/22 11:26 68 94 03/07/22 11:24 66 95 Coding Level of Care Code None Diagnoses PROM (premature rupture of membranes) O42.90
[2022-03-08] MEDS ORDERED: ACETAMINOPHEN 325 MG TAB PO PRN (00:28)
[2022-03-08] MEDS ORDERED: OXYTOCIN 30 UNITS/500 ML BAG IV PRN (00:28)
[2022-03-08] MEDS ORDERED: HYDROCORTISONE ACETATE 25 MG SUPP PR PRN (00:28)
[2022-03-08] MEDS ORDERED: oxyCODONE/ACETAMINOPHEN 5mg/325mg TAB PO PRN (00:28)
[2022-03-08] MEDS ORDERED: bisacodyL 10 MG SUPP PR PRN (00:28)
[2022-03-08] MEDS ORDERED: DIPHTHERIA/TETANUS/PERTUSSIS 0.5 ML SYR/VIAL IM ONE (00:28)
[2022-03-08] MEDS ORDERED: BENZOCAINE 20% AER SPR 82.5 GM CAN EXT PRN (00:28)
--- NOTE | 2022-03-08 00:33 | Delivery Summary ---
Vaginal Delivery Summary Date of Service March 08, 2022 Vaginal Delivery Summary and 2nd Degree LAC (wtih left sulcal) Pre-operative Diagnosis: at 40 5/7 pprom Post-operative Diagnosis: same Procedure: pitocin augmentation epidural iupc second degree and left sulcal laceration and tear EBL: 400cc Anesthesia: epidural Procedure: The patient presented to labor and delivery with gross srom that occurred at one am. She was given some time, but then pitocin started. She underwent epidural. She then progressed to c/c/+2 station. The patient pushed for about 2 hours to deliver a viable female infant in doa position. The nose and mouth were bulb suctioned on the perineum and the rest of the was then delivered without difficulty. The baby was vigorous. The nose and mouth were again bulb suctioned. The Cord was clamped on the perineum because it was somewhat short. Infant then placed on the maternal abdomen for drying and attention. Cord blood obtained. Placenta delivered spontaneous, intact with a three vessel cord. Cervix/sulci/rectum were intact. A second degree perineal laceration and small left sulcal laceration were repaired in the normal standard fashion. Hemostasis obtained with dilute pitocin and fundal massage. Apgars were 8/8. Mother and baby doing well at the end of the delivery. [facility] [place] Delivery Charge Delivery Type Details: and 2nd Degree LAC (wtih left sulcal)
[2022-03-08 06:51] LABS: Hematocrit (blood only) 29.3 % (37-47); Hemoglobin 9.9 g/dL (12.0-16.0)
--- NOTE | 2022-03-08 07:12 | Obstetrical Progress Note ---
Date of Service March 08, 2022 Assessment & Plan (1) Vaginal delivery: Doing well. Routine pp care. Day #:: 0 Subjective Ambulation: limited ambulation Voiding: no voiding problems Passing Gas:: No Diet Tolerance:: regular diet Lochia:: Small Feeding Type:: breast feeding bottom quite sore Physical Exam Constitutional WD/WN, vitals as above Cardiovascular Extremities: no calf tenderness and no edema Gastrointestinal (Abdomen) soft, nt, nd, ff/nt 2 below u Results & Data ([facility]) Vital Signs (Past 12 Hours) Vital Signs Temp Pulse Pulse Resp BP BP Pulse Ox 03/08/22 03:00 36.6 C 56 L 18 103/63 98 03/08/22 02:25 36.5 C 03/08/22 01:55 77 18 100/61 03/08/22 01:40 62 108/63 03/08/22 01:25 75 16 109/63 03/08/22 01:11 68 108/64 03/08/22 01:05 16 03/08/22 00:40 81 18 108/69 03/08/22 00:26 73 118/56 L 03/08/22 00:25 18 03/08/22 00:24 67 98 03/08/22 00:19 67 98 03/08/22 00:17 62 110/66 03/08/22 00:14 67 97 03/08/22 00:09 89 95 03/08/22 00:04 72 98 03/07/22 23:59 77 98 03/07/22 23:54 63 97 03/07/22 23:49 70 99 03/07/22 23:47 69 106/69 03/07/22 23:44 66 98 03/07/22 23:39 60 98 03/07/22 23:34 64 98 03/07/22 23:33 57 L 112/72 03/07/22 23:29 75 99 03/07/22 23:24 68 98 03/07/22 23:19 69 97 03/07/22 23:18 65 105/65 03/07/22 23:14 62 98 03/07/22 23:09 70 96 03/07/22 23:04 71 97 03/07/22 23:00 37.2 C 18 03/07/22 22:59 78 97 03/07/22 22:54 65 98 0604/22 22:49 70 98 03/07/22 22:44 66 97 03/07/22 22:39 63 97 03/07/22 22:34 76 97 03/07/22 22:33 71 98/59 L 03/07/22 22:29 69 97 03/07/22 22:24 80 98 03/07/22 22:19 72 97 03/07/22 22:17 62 121/74 03/07/22 22:14 62 97 03/07/22 22:09 57 L 97 03/07/22 22:04 61 98 03/07/22 22:02 62 119/76 03/07/22 21:59 63 97 03/07/22 21:54 62 97 03/07/22 21:49 64 97 03/07/22 21:47 55 L 112/69 03/07/22 21:44 64 97 03/07/22 21:39 64 97 03/07/22 21:34 69 95 03/07/22 21:33 64 123/74 03/07/22 21:29 64 97 03/07/22 21:24 60 96 03/07/22 21:19 56 L 96 03/07/22 21:17 62 119/70 03/07/22 21:14 65 96 03/07/22 21:09 66 96 03/07/22 21:07 66 94 03/07/22 21:04 62 114/71 96 03/07/22 20:59 64 96 03/07/22 20:55 37.0 C 16 03/07/22 20:54 73 97 03/07/22 20:49 61 96 03/07/22 20:48 64 114/72 03/07/22 20:44 62 96 03/07/22 20:39 76 96 03/07/22 20:34 66 96 03/07/22 20:33 64 118/71 03/07/22 20:29 58 L 96 03/07/22 20:24 63 97 03/07/22 20:19 64 97 03/07/22 20:17 64 120/75 03/07/22 20:14 66 96 03/07/22 20:09 60 97 03/07/22 20:04 68 96 03/07/22 20:03 64 116/73 03/07/22 19:59 64 97 0604/22 19:54 63 97 03/07/22 19:49 65 96 03/07/22 19:48 63 116/74 03/07/22 19:44 65 97 03/07/22 19:39 64 96 03/07/22 19:34 64 97 03/07/22 19:32 59 L 107/72 03/07/22 19:29 59 L 97 03/07/22 19:24 66 97 03/07/22 19:19 64 98 03/07/22 19:17 65 112/71 03/07/22 19:14 60 97 03/07/22 19:13 36.7 C 16
[2022-03-08] MEDS: IBUPROFEN 600 MG TAB PO PRN ×2 (08:34→21:23)
[2022-03-08] MEDS: PRENATAL VITAMIN 1 TAB PO SCH (08:34)
[2022-03-08] MEDS: DOCUSATE SODIUM 100 MG CAP PO SCH ×2 (08:34→21:19)
--- NOTE | 2022-03-08 08:49 | Anesthesia Procedure Note ---
Date of Service March 08, 2022 Anesthesia Post Epidural Note Vital Signs Vital Signs: Temp Pulse Resp BP Pulse Ox 97.9 F 56 L 18 103/63 98 03/08/22 03:00 03/08/22 03:00 03/08/22 03:00 03/08/22 03:00 03/08/22 03:00 Pain Intensity Lower Abdomen: Pain Intensity: 2 Notes Mental Status: alert / awake / arousable and participated in evaluation Nausea / Vomiting: adequately controlled Pain: adequately controlled Airway Patency, RR, SpO2: stable & adequate BP & HR: stable & adequate Hydration State: stable & adequate Neuraxial Anesthesia: was administered and sensory block is resolving Anesthetic Complications: no major complications apparent and Pt Satisfied with anesthetic care Epidural: Removed without complications and With tip intact
[2022-03-08] MEDS ORDERED: HYDROCORTISONE HC 2.5% CRM 30GM TUBE EXT PRN (16:04)
--- NOTE | 2022-03-09 07:27 | Obstetrical Progress Note ---
Date of Service March 09, 2022 Assessment & Plan (1) Encounter for care and examination after delivery: Plan: 26yo PPD 1 s/p at 40+weeks -Continue routine care -Vitals reviewed- HDS, afebrile -GBS neg -Encourage ambulation, regular diet -Pain control with ibuprofen, acetaminophen PRN -Encourage -Hgb 9.9, stable -patient opting for discharge tomorrow -f/u in 6 weeks with OB after discharge Admission and Anticipated Discharge Date Admission Date: March 07, 2022 Supervising Physician Co-Signing Physician Notes Resident Physician Supervision Note: I was present with Dr. Dennis during the history and exam. I discussed the case with the resident and agree with the findings and plan as documented in the note. Any exceptions or clarifications are listed here: stable, routine care. eating, voiding, ambul without prob. ff at u, nt, nt calves. Documented By: Ivette French MD, FACOG Subjective Ambulation: yes Voiding: yes Passing Gas: yes BM: no Diet Tolerance: regular, denies N/V Lochia: small Feeding Type: Current Pain Level(1-10): 2 Review of Systems Review of Systems: Denies fevers/chills. Denies dyspnea, cough. Denies chest pain. Denies dysuria. Denies headache. Denies back pain. Physical Exam Physical Exam: General: Alert, oriented, no acute distress Cardiac: Regular rate and rhythm, normal S1, S2. No murmurs appreciated. Respiratory: Clear to auscultation b/l with good air flow entry, symmetric chest rise and fall. No wheezes or crackles. No increased work of breathing or accessory muscle use Abdomen: Soft, nontender, nondistended. Fundus firm and palpable at 2 cm below umbilicus. No guarding or rebound. Skin: No rashes or lesions Extremities: Warm, dry, well-perfused with capillary refill <2s b/l. No lower extremity edema, erythema or swelling. Negative Emily's sign b/l. Results & Data ([facility]) Vital Signs (Past 12 Hours) Vital Signs Temp Pulse Resp BP Pulse Ox 03/09/22 07:15 36.7 C 66 16 101/62 98 03/08/22 22:58 36.8 C 60 16 98/61 L 98 03/08/22 19:44 36.9 C 68 18 98/60 L Resident Activity Tracking Resident Involvement: Resident Care Provided Care Provided: OB Delivery
[2022-03-09] MEDS: DOCUSATE SODIUM 100 MG CAP PO SCH ×2 (09:40→22:55)
[2022-03-09] MEDS: PRENATAL VITAMIN 1 TAB PO SCH (09:40)
[2022-03-09] MEDS: IBUPROFEN 600 MG TAB PO PRN ×2 (09:40→19:59)
[2022-03-09] MEDS ORDERED: bisacodyL 5 MG TABEC PO SCH (20:00)
--- NOTE | 2022-03-10 08:12 | Obstetrical Progress Note ---
Date of Service March 10, 2022 Assessment & Plan (1) Encounter for care and examination after delivery: Plan: 26yo PPD 2 s/p at 40+weeks -Continue routine care -Vitals reviewed- HDS, afebrile -GBS neg -Encourage ambulation, regular diet -Pain control with ibuprofen, acetaminophen PRN -Encourage -(4/5) Hgb 9.9, stable -f/u in 6 weeks with OB after discharge Admission and Anticipated Discharge Date Admission Date: March 07, 2022 Supervising Physician Co-Signing Physician Notes Patient seen and evaluated with resident and agree with the above findings and plan. Doing well. Stable for discharge Subjective Ambulation: yes Voiding: yes Passing Gas: yes BM: yes Diet Tolerance: regular, denies N/V Lochia: small Feeding Type: Current Pain Level(1-10): 0 Review of Systems Review of Systems: Denies fevers/chills. Denies dyspnea, cough. Denies chest pain. Denies dysuria. Denies headache. Denies back pain. Physical Exam Physical Exam: General: Alert, oriented, no acute distress Cardiac: Regular rate and rhythm, normal S1, S2. No murmurs appreciated. Respiratory: Clear to auscultation b/l with good air flow entry, symmetric chest rise and fall. No wheezes or crackles. No increased work of breathing or accessory muscle use Abdomen: Soft, nontender, nondistended. Fundus firm and palpable at 2 cm below umbilicus. No guarding or rebound. Skin: No rashes or lesions Extremities: Warm, dry, well-perfused with capillary refill <2s b/l. No lower extremity edema, erythema or swelling. Negative Emily's sign b/l. Results & Data ([facility]) Vital Signs (Past 12 Hours) Vital Signs Temp Pulse Resp BP Pulse Ox 03/09/22 23:07 36.9 C 66 16 102/63 99 Resident Activity Tracking Resident Involvement: Resident Care Provided Care Provided: OB Delivery
[2022-03-10] MEDS: PRENATAL VITAMIN 1 TAB PO SCH (08:53)
[2022-03-10] MEDS: DOCUSATE SODIUM 100 MG CAP PO SCH (08:53)
== END 2022-03-10 13:50 | disposition home or self-care (01) | DRG 807 ==
LOC: OPB 01:28 → 4S1 01:29 → 4E2 03-08 03:02
DX: Z20.822 Contact with and (suspected) exposure to COVID-19; O70.1 Second degree perineal laceration during delivery; O48.0 Post-term pregnancy; Z37.0 Single live birth; O42.02 Full-term premature rupture of membranes, onset of labor within 24 hours of rupture; Z3A.40 40 weeks gestation of pregnancy